=== PATIENT | male | born 1965 | race Two or more races ===

== ENCOUNTER 2017-05-29 00:23 | Emergency (ER) | payer SELFPAY ==
[~2017-05-29] VITALS: Ht 175.3 cm; Wt 88.5 kg
[2017-05-29] MEDS ORDERED: IV NORMAL SALINE 1000ML BAG 1,000 ML IV SCH (02:15)
[2017-05-29 02:21] LABS: BASO % 0 % (0-3); EOS % 2 % (0-3); HEMATOCRIT 41.6 % (39.0-53.0); HEMOGLOBIN 13.7 g/dL (13.0-17.5); LYMPH # 3.1 x10^3/uL (1.0-4.8); LYMPH % 46 % (24-48); MEAN CORPUSCULAR HEMOGLOBIN 30 pg (25-35); MEAN CORPUSCULAR HGB CONC 33 g/dL (31-37); MEAN CORPUSCULAR VOLUME 91 fL (79-100); MONO % 5 % (0-9); NEUT % 47 % (31-73); PLATELET COUNT 235 x10^3/uL (140-400); RED BLOOD COUNT 4.59 x10^6/uL (4.30-5.70); RED CELL DISTRIBUTION WIDTH 13.8 % (11.5-14.5); WHITE BLOOD COUNT 6.8 x10^3/uL (4.0-11.0)
[2017-05-29 02:34] LABS: CALCIUM 8.7 mg/dL (8.5-10.1); CREATININE 1.1 mg/dL (0.7-1.3); GFR 70.9; POTASSIUM 3.3 mmol/L (3.5-5.1)
[2017-05-29 02:40] LABS: ALBUMIN 3.7 g/dL (3.4-5.0); ALBUMIN/GLOBULIN RATIO 1.1 (1.0-1.7); TOTAL BILIRUBIN 0.5 mg/dL (0.2-1.0)
[2017-05-29 03:30] VITALS: BP 120/76
[2017-05-29] MEDS ORDERED: ONDA4TAB10 SL (03:51)
--- NOTE | 2017-05-29 03:54 | PHYS DOC ---
Past Medical History Past Medical History: GERD, Other Additional Past Medical Histor: chronic back pain Past Surgical History: No Surgical History Alcohol Use: Occasionally Drug Use: Cocaine Social History Narrative: occassional/recreational drug use Adult General Chief Complaint Chief Complaint: SYNCOPE HPI HPI 52-year-old male with no significant past medical history now presents to the emergency department after fainting or nearly fainting. Patient was feeling fine last night. In the middle of night he had an episode of nausea and vomiting and while running to the bathroom he vomited and got lightheaded, nearly fainting or possibly fainting briefly. Patient did not injure himself. He has no complaints now and feels asymptomatic and his baseline. No chest pain or shortness of breath no headache or stiff neck no fevers chills sweats or shaking chills Review of Systems Review of Systems Constitutional: Denies fever or chills [] Eyes: Denies change in visual acuity, redness, or eye pain [] HENT: Denies nasal congestion or sore throat [] Respiratory: Denies cough or shortness of breath [] Cardiovascular: No additional information not addressed in HPI [] GI: Denies abdominal pain, nausea, vomiting, bloody stools or diarrhea [] : Denies dysuria or hematuria [] Musculoskeletal: Denies back pain or joint pain [] Integument: Denies rash or skin lesions [] Neurologic: Denies headache, focal weakness or sensory changes [] Endocrine: Denies polyuria or polydipsia [] Current Medications Current Medications Current Medications Medications (Trade) Dose Ordered Sig/Silva Start Time Stop Time Status Last Admin Dose Admin Sodium Chloride 1,000 ml @ 999 mls/hr Q1H1M 05/29/17 02:15 05/29/17 03:15 DC 05/29/17 02:31 999 MLS/HR Allergies Allergies Allergies Coded Allergies Type Severity Reaction Last Updated Verified No Known Drug Allergies 05/29/17 No Physical Exam Physical Exam Constitutional: Well developed, well nourished, no acute distress, non-toxic appearance. [] HENT: Normocephalic, atraumatic, bilateral external ears normal, oropharynx moist, no oral exudates, nose normal. [] Eyes: PERRLA, EOMI, conjunctiva normal, no discharge. [] Neck: Normal range of motion, no tenderness, supple, no stridor. [] Cardiovascular:Heart rate regular rhythm, no murmur [] Lungs & Thorax: Bilateral breath sounds clear to auscultation [] Abdomen: Bowel sounds normal, soft, no tenderness, no masses, no pulsatile masses. [] Skin: Warm, dry, no erythema, no rash. [] Back: No tenderness, no CVA tenderness. [] Extremities: No tenderness, no cyanosis, no clubbing, ROM intact, no edema. [] Neurologic: Alert and oriented X 3, normal motor function, normal sensory function, no focal deficits noted. [] Psychologic: Affect normal, judgement normal, mood normal. [] Current Patient Data Vital Signs Vital Signs Date Time Temp Pulse Resp B/P (MAP) Pulse Ox O2 Delivery O2 Flow Rate FiO2 05/29/17 00:30 97.8 62 13 116/73 (87) 95 Room Air 97.8 Lab Values Laboratory Tests Test 05/29/17 00:31 White Blood Count 6.8 x10^3/uL (4.0-11.0) Red Blood Count 4.59 x10^6/uL (4.30-5.70) Hemoglobin 13.7 g/dL (13.0-17.5) Hematocrit 41.6 % (39.0-53.0) Mean Corpuscular Volume 91 fL (79-100) Mean Corpuscular Hemoglobin 30 pg (25-35) Mean Corpuscular Hemoglobin Concent 33 g/dL (31-37) Red Cell Distribution Width 13.8 % (11.5-14.5) Platelet Count 235 x10^3/uL (140-400) Neutrophils (%) (Auto) 47 % (31-73) Lymphocytes (%) (Auto) 46 % (24-48) Monocytes (%) (Auto) 5 % (0-9) Eosinophils (%) (Auto) 2 % (0-3) Basophils (%) (Auto) 0 % (0-3) Neutrophils # (Auto) 3.2 x10^3uL (1.8-7.7) Lymphocytes # (Auto) 3.1 x10^3/uL (1.0-4.8) Monocytes # (Auto) 0.4 x10^3/uL (0.0-1.1) Eosinophils # (Auto) 0.1 x10^3/uL (0.0-0.7) Basophils # (Auto) 0.0 x10^3/uL (0.0-0.2) Sodium Level 140 mmol/L (136-145) Potassium Level 3.3 mmol/L (3.5-5.1) L Chloride Level 104 mmol/L (98-107) Carbon Dioxide Level 26 mmol/L (21-32) Anion Gap 10 (6-14) Blood Urea Nitrogen 16 mg/dL (8-26) Creatinine 1.1 mg/dL (0.7-1.3) Estimated GFR (Cockcroft-Gault) 70.9 BUN/Creatinine Ratio 15 (6-20) Glucose Level 129 mg/dL (70-99) H Calcium Level 8.7 mg/dL (8.5-10.1) Total Bilirubin 0.5 mg/dL (0.2-1.0) Aspartate Amino Transferase (AST) 25 U/L (15-37) Alanine Aminotransferase (ALT) 51 U/L (16-63) Alkaline Phosphatase 100 U/L (46-116) Troponin I Quantitative < 0.017 ng/mL (0.000-0.055) Total Protein 7.0 g/dL (6.4-8.2) Albumin 3.7 g/dL (3.4-5.0) Albumin/Globulin Ratio 1.1 (1.0-1.7) Lipase 156 U/L (73-393) Laboratory Tests 05/29/17 00:31 Laboratory Tests 05/29/17 00:31 EKG EKG EKG normal sinus rhythm at 59 normal axis no STEMI unremarkable study interpreted by me [] Radiology/Procedures Radiology/Procedures Chest x-ray chronic changes no acute disease interpreted by me [] Course & Med Decision Making Course & Med Decision Making Pertinent Labs and Imaging studies reviewed. (See chart for details) Signs and symptoms consistent with viral syndrome and vasovagal episode with syncope. Workup unremarkable. Patient asymptomatic on reevaluation after hydration. No further workup or treatment indicated patient agrees with outpatient follow-up and strict return precautions given [] Dragon Disclaimer Dragon Disclaimer This electronic medical record was generated, in whole or in part, using a voice recognition dictation system. Departure Departure Impression: Primary Impression: Vasovagal episode Additional Impressions: Vomiting Viral syndrome Vasovagal syncope Disposition: 01 HOME, SELF-CARE Condition: IMPROVED Referrals: NO PCP (PCP) Patient Instructions: Syncope, Evot-wc-Byil Additional Instructions: As the you've had a vasovagal reaction this evening. You likely have a viral syndrome which causes she did have an episode of nausea and vomiting. The nausea and vomiting appears to have triggered a vasovagal episode which resulted any fainting or nearly fainting. Rest and drink plenty of fluids. Use Zofran under your tongue every 4 hours as needed and follow-up with your doctor in the morning. Return immediately for new severe worsening symptoms Scripts Ondansetron (ZOFRAN ODT) 4 Mg Tab.rapdis 1 TAB SL Q4HRS Y for VOMITING, #15 TAB Prov: RITO KARIMI MD 05/29/17 Problem Qualifiers RITO KARIMI MD May 29, 2017 03:54
--- NOTE | 2017-05-29 08:14 | RAD ---
Exam performed: One view chest. Indication: SYNCOPE Date of Service: 05/29/2017 4:15 AM Comparison: None available.. Single AP upright portable view chest findings: Cardiomediastinal silhouette is within limits of normal. No acute infiltrates, effusion or pneumothorax is detected. The bony structures are normal. Impression: No acute cardiopulmonary process is detected.
--- NOTE | 2017-05-29 08:17 | EKG ---
[facility] [address] [place] [id number] Test Date: 2017-05-29 Test Time: 00:32:11 Pat Name: NILE SHELDON Department: Room: Gender: [employer]: : [id number] Requested By: RITO KARIMI Order Number: [id number] Reading MD: Naif Reinoso Measurements Intervals [place] Rate: 59 P: 45 OK: 210 QRS: 49 QRSD: 92 T: 25 QT: 408 QTc: 408 Interpretive Statements SINUS RHYTHM Electronically Signed On 05-29-2017 9:25:00 CDT by Naif Reinoso
== END 2017-05-29 04:28 | disposition home or self-care (01) ==
LOC: ER 00:23
DX: R55 Syncope and collapse (principal); R11.2 Nausea with vomiting, unspecified; B34.9 Viral infection, unspecified; G89.29 Other chronic pain; K21.9 Gastro-esophageal reflux disease without esophagitis
CPT/HCPCS: 36415; 71010; 80053; 83690; 84484; 85025; 93005; 96360; 99285; J7030